=== PATIENT | female | born 1965 | race Two or more races ===

== ENCOUNTER 2021-06-05 21:37 | Emergency (ER) | payer MEDICAID ==
[~2021-06-05] VITALS: Ht 152.4 cm; Wt 90.0 kg
[2021-06-05 23:10] LABS: RAPID INFLUENZA A Negative (Negative); RAPID INFLUENZA B Negative (Negative)
[2021-06-06 01:06] VITALS: BP 146/74
== END 2021-06-06 01:08 | disposition home or self-care (01) ==
LOC: ED 22:07
DX: B34.9 Viral infection, unspecified (principal); Z20.822 Contact with and (suspected) exposure to COVID-19
CPT/HCPCS: 87400; 99283; U0003; U0005